=== PATIENT | male | born 1935 | race African-American/Black ===

== ENCOUNTER → 2017-05-10 | Outpatient (CLI) | payer MEDICARE ==
--- NOTE | 2017-05-10 13:33 | RADRPT ---
EXAM DATE/TIME: 05/10/2017 11:46 [place] COMPARISON: No previous studies available for comparison. INDICATIONS : Dysphagia and choking with thin liquids. Recent pneumonia 2 times. FLUORO TIME: 1.27 minutes IMAGE COUNT: 9 CONTRAST: Dose as prescribed by speech pathologist. MEDICAL HISTORY : None. SURGICAL HISTORY : None. ENCOUNTER: Initial ACUITY: 3 months PAIN SCORE: 0/10 LOCATION: Esophagus. FINDINGS: A modified barium swallow was performed with speech pathology. Patient was given a variety of liquids to swallow. Patient had some difficulty with the oral phase of deglutition but was eventually able to propel the food bolus to the posterior oropharynx. Some pooling in the vallecula otherwise, normal pharyngeal mo tion without evidence of laryngeal penetration or teodoro aspiration. Some degenerative spurring is see n in the mid and lower cervical spine For a full detailed report, see report by the speech pathologist. CONCLUSION: 1. Some pulling in the vallecula with sluggish oral phase of deglutition. 2. Otherwise, no laryngeal penetration or teodoro aspiration. Speech pathology report to follow. Luiz Boucher MD on May 10, 2017 at 13:29 Board Certified Radiologist. This report was verified electronically.
== END ==
LOC: HRAD 10:01
PROVIDERS: ATTEND Internal Medicine Gastroenterology
DX: R13.10 Dysphagia, unspecified (principal); Z87.01 Personal history of pneumonia (recurrent)
CPT/HCPCS: 74230; 92611; G8996; G8997; G8998